=== PATIENT | male | born 1985 | race Two or more races ===

== ENCOUNTER 2016-10-02 05:25 | Emergency (ER) | payer SELFPAY ==
--- NOTE | 2016-10-02 06:58 | ER Document Report ---
HPI - HPI Patient complains to provider of: dental pain Onset: Yesterday Onset/Duration: Sudden Quality of pain: Achy Severity: Severe Pain Level: 5 Context: Patient presents to the emergency department with dental pain that started last night at approximately 2300. He denies breaking a tooth or biting down on the tooth at that time. He reports it just started hurting. Patient denies other symptoms such as fever vomiting diarrhea. Patient does not have dental insurance. Associated Symptoms: None Exacerbated by: Denies Relieved by: Denies Similar symptoms previously: No Recently seen / treated by doctor: No - DERM Skin Color: Normal Past Medical History - General Information source: Patient - Social History Smoking Status: Current Every Day Smoker Cigarette use (# per day): Yes - 1ppd Chew tobacco use (# tins/day): No Frequency of alcohol use: Rare Drug Abuse: None Family History: Reviewed & Not Pertinent Patient has suicidal ideation: No Patient has homicidal ideation: No - Medical History Medical History: Negative Renal/ Medical History: Denies: Hx Peritoneal Dialysis Surgical Hx: Negative - Immunizations Hx Diphtheria, Pertussis, Tetanus Vaccination: Yes Vertical Provider Document - CONSTITUTIONAL Agree With Documented VS: Yes Exam Limitations: No Limitations General Appearance: WD/WN, No Apparent Distress - INFECTION CONTROL TRAVEL OUTSIDE OF THE [place] IN LAST 30 DAYS: No - HEENT HEENT: Atraumatic, Normocephalic Mouth Diagram: 1 - broken tooth,No peritonsillar abscess good clear voice no trismus, no swelling no erythema opens mouth wide. no ludwigs - NECK Neck: Normal Inspection, Supple - RESPIRATORY Respiratory: Breath Sounds Normal, No Respiratory Distress O2 Sat by Pulse Oximetry: 99 - CARDIOVASCULAR Cardiovascular: Regular Rate - MUSCULOSKELETAL/EXTREMETIES Musculoskeletal/Extremeties: IZAIAH GARCIA - NEURO Level of Consciousness: Awake, Alert, Appropriate - DERM Integumentary: Warm, Dry Course - Re-evaluation Re-evalutation: 10/02/16 07:23 Written dental resource information provided for patient. - Vital Signs Vital signs: Temp Pulse Resp BP Pulse Ox 97.5 F 74 18 156/92 H 99 10/02/16 05:50 02/12/17 05:50 10/02/16 05:50 10/02/16 05:50 10/02/16 05:50 Discharge - Discharge Clinical Impression: Pain, dental, Elevated blood pressure reading Condition: Stable Disposition: HOME, SELF-CARE Instructions: Penicillin V K ([facility]), Toothache ([facility]) Additional Instructions: *You have been evaluated for dental pain *Take medications as prescribed *Follow up with dentist *Return to ED for worsening condition, changes, needs Prescriptions: Hydrocodone/Acetaminophen [[place] 5-325 Tablet] 1 each PO QID PRN #10 tablet PRN Reason: Penicillin V Potassium [Penicillin Vk 500 mg Tablet] 500 mg PO BID #20 tablet Forms: Elevated Blood Pressure
[2016-10-02] MEDS ORDERED: OXYCODONE-ACETAMINOPHEN 5-325 MG TABLET PO ONE (07:22)
[2016-10-02] MEDS ORDERED: PENICILLIN V POTASSIUM 500 MG TABLET PO ONE (07:22)
[2016-10-02 07:36] VITALS: BP 144/97
== END 2016-10-02 07:30 | disposition home or self-care (01) ==
LOC: ER 05:25
DX: K08.89 Other specified disorders of teeth and supporting structures (principal); R03.0 Elevated blood-pressure reading, without diagnosis of hypertension; F17.210 Nicotine dependence, cigarettes, uncomplicated
CPT/HCPCS: 99282

== ENCOUNTER 2016-10-27 13:41 | Emergency (ER) | payer SELFPAY ==
[2016-10-27 13:49] VITALS: BP 138/80
--- NOTE | 2016-10-27 13:53 | ER Document Report ---
ED Medical Screen (RME) - General Stated Complaint: HAND INJURY Notes: patient back handed a glass water pitcher and comes in with lacerations along the right lateral wrist. within the hour Last tetanus was 7 years ago I have greeted and performed a rapid initial assessment of this patient. A comprehensive ED assessment and evaluation of the patient, analysis of test results and completion of the medical decision making process will be conducted by additional ED providers. TRAVEL OUTSIDE OF THE [place] IN LAST 30 DAYS: No - Related Data Allergies/Adverse Reactions: No Known Allergies Allergy (Verified 01/08/16 14:04) Past Medical History Renal/ Medical History: Denies: Hx Peritoneal Dialysis - Immunizations Hx Diphtheria, Pertussis, Tetanus Vaccination: Yes Physical Exam - Vital signs Vitals: Temp Pulse Resp BP Pulse Ox 97.8 F 114 H 16 138/80 H 98 10/27/16 13:46 10/27/16 13:46 10/27/16 13:46 10/27/16 13:46 10/27/16 13:46 Course - Vital Signs Vital signs: Temp Pulse Resp BP Pulse Ox 97.8 F 114 H 16 138/80 H 98 10/27/16 13:46 10/27/16 13:46 10/27/16 13:46 10/27/16 13:46 10/27/16 13:46
[2016-10-27] MEDS ORDERED: DIPH/PERTUSS(ACELL)/TETANUS VAC/PF 0.5 ML SYR (>=10YO) IM ONE (13:54)
[2016-10-27] MEDS ORDERED: ACETAMINOPHEN 325 MG TABLET PO ONE (13:54)
--- NOTE | 2016-10-27 14:43 | ER Document Report ---
ED General - General Chief Complaint: Laceration Stated Complaint: HAND INJURY Mode of Arrival: Ambulatory Information source: Patient Notes: Patient presents to the emergency department with left wrist laceration after he punched a picture frame in anger. Patient has full range of motion no active bleeding. Tetanus was given here. TRAVEL OUTSIDE OF THE [place] IN LAST 30 DAYS: No - HPI Onset: Just prior to arrival Onset/Duration: Sudden Severity: Severe Pain Level: 5 Associated symptoms: None Exacerbated by: Denies Relieved by: Denies Similar symptoms previously: No Recently seen / treated by doctor: No - Related Data Allergies/Adverse Reactions: No Known Allergies Allergy (Verified 10/27/16 13:52) Home Medications: Current Home Medications No Home Medications 10/27/16 [History] Past Medical History - General Information source: Patient - Social History Smoking Status: Current Every Day Smoker Cigarette use (# per day): Yes - 2ppd Chew tobacco use (# tins/day): No Frequency of alcohol use: None Drug Abuse: None Occupation: unemployed Family History: Reviewed & Not Pertinent Patient has suicidal ideation: No Patient has homicidal ideation: No - Medical History Medical History: Negative Renal/ Medical History: Denies: Hx Peritoneal Dialysis Surgical Hx: Negative - Immunizations Hx Diphtheria, Pertussis, Tetanus Vaccination: - unknown Review of Systems - Review of Systems Notes: Review HPI for review of systems., All other systems negative Physical Exam - Vital signs Vitals: Temp Pulse Resp BP Pulse Ox 97.8 F 114 H 16 138/80 H 98 10/27/16 13:46 10/27/16 13:46 10/27/16 13:46 10/27/16 13:46 10/27/16 13:46 - Notes Notes: PHYSICAL EXAMINATION: GENERAL: Well-appearing and in no acute distress HEAD: Atraumatic, normocephalic. EYES: Pupils equal round extraocular movements intact, sclera anicteric, conjunctiva are normal. ENT: nares patent Moist mucous membranes. NECK: Normal range of motion, supple LUNGS: RR even/unlabored HEART: Regular rate EXTREMITIES: Normal range of motion, Superficial lacerations/abrasions noted to lateral right wrist /hand, good radial pulse, brisk cap refill, no active bleeding NEUROLOGICAL: Cranial nerves grossly intact. Normal sensory/motor exams. PSYCH: Normal mood, normal affect. SKIN: Warm, Dry, normal turgor, Course - Re-evaluation Re-evalutation: 10/27/16 Patient was instructed on care of wound importance of keeping the area clean. He verbalized instructions all instructions, site looks good no need for sutures. He has full range of motion. - Vital Signs Vital signs: Temp Pulse Resp BP Pulse Ox 97.8 F 114 H 16 138/80 H 98 10/27/16 13:46 10/27/16 13:46 10/27/16 13:46 10/27/16 13:46 10/27/16 13:46 - Diagnostic Test Radiology reviewed: Image reviewed, Reports reviewed - IMPRESSION: NEGATIVE STUDY OF THE RIGHT HAND. NO RADIOGRAPHIC EVIDENCE OF ACUTE INJURY. IMPRESSION: NEGATIVE STUDY OF THE RIGHT WRIST. NO RADIOGRAPHIC EVIDENCE OF ACUTE INJURY. Procedures - Laceration/Wound Repair Right Wrist Wound length (cm): 0.5 Wound's Depth, Shape: Superficial, Other - abrasions, small lacerations x 2 Laceration pre-procedure: Shur-Clens applied, Other - surgical scrub brush Volume Anesthetic (mLs): 0 Wound explored: Clean, No foreign body removed Irrigated w/ Saline (mLs): 1,250 Wound Repaired With: Steri-strips Notes: 10/27/16 17:05 Multiple small lacerations and abrasions noted to the lateral area of the right wrist and hand. area cleaned really well with surgical scrub brush and shur clens, area probed for glass fragments, very few found. no open lacerations Hands front picture: 1 - Multiple small lacerations abrasions noted 2 - 5 mm laceration 3 - small laceration, superficial 4 mm Discharge - Discharge Clinical Impression: Abrasion forearm, Laceration, Elevated blood pressure reading Condition: Stable Disposition: HOME, SELF-CARE Instructions: Antibiotic Ointment Protection ([facility]), Tetanus Immunization Given ([facility]), Soap Cleansing ([facility]), Care of Steri-Strip Closure ([facility]), Acetaminophen Additional Instructions: *You have been treated for abrasions, small laceration *Keep the area clean *Do not pull the steri strips off *Monitor the site for signs of infection such as increasing pain, redness, swelling, warmth *Follow up with a primary care provider for recheck within one week *Return to the ED for signs of infection *Take tylenol for pain as indicated *Return earlier for worsening condition, changes, needs, concerns *Monitor your blood pressure. Your blood pressure was elevated today. This may be because you were anxious, in pain or because you need medication. It is important to follow up with your primary care provider for full evaluation. Forms: Elevated Blood Pressure
== END 2016-10-27 15:41 | disposition home or self-care (01) ==
LOC: ER 13:41
DX: S61.511A Laceration without foreign body of right wrist, initial encounter (principal); S61.411A Laceration without foreign body of right hand, initial encounter; W25.XXXA Contact with sharp glass, initial encounter; Y93.89 Activity, other specified; R03.0 Elevated blood-pressure reading, without diagnosis of hypertension; F17.210 Nicotine dependence, cigarettes, uncomplicated; Z23 Encounter for immunization
CPT/HCPCS: 90471; 90715; 99283

== ENCOUNTER 2017-08-09 17:17 | Emergency (ER) | payer SELFPAY ==
[2017-08-09 17:36] VITALS: BP 153/97
[2017-08-09] MEDS ORDERED: LORAZEPAM 1 MG TABLET PO ONE (17:48)
[2017-08-09 18:16] LABS: ABSOLUTE BASOPHILS # (AUTO) 0.1 10^3/uL (0.0-0.2); ABSOLUTE EOSINOPHILS # (AUTO) 0.2 10^3/uL (0.0-0.6); ABSOLUTE LYMPHOCYTES (AUTO) 3.4 10^3/uL (0.5-4.7); ABSOLUTE MONOCYTES (AUTO) 0.9 10^3/uL (0.1-1.4); ABSOLUTE NEUT (AUTO) 7.4 10^3/uL (1.7-8.2); BASOPHILS % (AUTO) 0.8 % (0-2); EOSINOPHILS % (AUTO) 1.4 % (0-6); HEMATOCRIT 51.1 % (37.9-51.0); HGB HCT DIFFERENCE 2.9; LYMPHOCYTES % (AUTO) 28.3 % (13-45); MEAN CORPUSCULAR HEMOGLOBIN 31.6 pg (27.0-33.4); MEAN CORPUSCULAR HGB CONC 35.3 g/dL (32.0-36.0); MEAN CORPUSCULAR VOLUME 90 fl (80-97); MONOCYTES % (AUTO) 7.7 % (3-13); RED BLOOD COUNT 5.71 10^6/uL (4.35-5.55); RED CELL DISTRIBUTION WIDTH 13.4 % (11.5-14.0); SEGMENTED NEUTROPHILS % (AUTO) 61.8 % (42-78); WHITE BLOOD COUNT 11.9 10^3/uL (4.0-10.5)
[2017-08-09 18:28] LABS: ALANINE AMINOTRANSFERASE 35 U/L (21-72); ALBUMIN 5.3 g/dL (3.5-5.0); ALKALINE PHOSPHATASE 104 U/L (38-126); ANION GAP 16 (5-19); ASPARTATE AMINO TRANSFERASE 19 U/L (17-59); BILIRUBIN,DIRECT 0.2 mg/dL (0.0-0.4); BILIRUBIN,TOTAL 0.4 mg/dL (0.2-1.3); BLOOD UREA NITROGEN 16 mg/dL (7-20); CALCIUM 10.9 mg/dL (8.4-10.2); CARBON DIOXIDE 26 mmol/L (22-30); CHLORIDE 102 mmol/L (98-107); CREATININE RESULT 0.92 mg/dL (0.52-1.25); GLUCOSE 85 mg/dL (75-110); POTASSIUM 4.6 mmol/L (3.6-5.0); SODIUM 143.8 mmol/L (137-145); TOTAL PROTEIN 8.9 g/dL (6.3-8.2)
--- NOTE | 2017-08-09 18:32 | EKG REPORT ---
SEVERITY:- BORDERLINE ECG - SINUS TACHYCARDIA BORDERLINE T ABNORMALITIES, DIFFUSE LEADS : Confirmed by: Mitchell Handy MD 09-Aug-2017 18:31:38
--- NOTE | 2017-08-09 18:40 | RADIOLOGY REPORT (SQ) ---
EXAM DESCRIPTION: CHEST PA/LAT COMPLETED DATE/TIME: 08/09/2017 6:10 pm REASON FOR STUDY: cp COMPARISON: None. EXAM PARAMETERS: NUMBER OF VIEWS: two views TECHNIQUE: Digital Frontal and Lateral radiographic views of the chest acquired. RADIATION DOSE: NA LIMITATIONS: none FINDINGS: LUNGS AND PLEURA: No opacities, masses or pneumothorax. No pleural effusion. MEDIASTINUM AND HILAR STRUCTURES: No masses or contour abnormalities. HEART AND VASCULAR STRUCTURES: Heart normal size. No evidence for failure. BONES: No acute findings. HARDWARE: None in the chest. OTHER: No other significant finding. IMPRESSION: NO SIGNIFICANT RADIOGRAPHIC FINDING IN THE CHEST. TECHNICAL DOCUMENTATION: JOB ID: [id number] [place]-72 2010 [employer]- All Rights Reserved
--- NOTE | 2017-08-09 19:15 | ER Document Report ---
ED Cardiac - General Chief Complaint: Chest Pain Stated Complaint: CHEST PAIN Time Seen by Provider: 08/09/17 17:47 Mode of Arrival: Ambulatory Information source: Patient Notes: Patient states that he is having substernal chest pain for several days. He states he feels it is due to stress. He states he has been under a lot of stress lately. Patient states the pain is intermittent. Last several minutes at a time. It is moderate and sharp. He has had some swelling. He also states that he occasionally gets short of breath but feels like he hyperventilates from anxiety. No nausea vomiting diarrhea. No previous history of any cardiac disease. He states he does smoke approximately 3 packs per day. No histories of PEs or DVTs. No radiation of pain. TRAVEL OUTSIDE OF THE [place] IN LAST 30 DAYS: No - Related Data Allergies/Adverse Reactions: No Known Allergies Allergy (Verified 08/09/17 17:18) Past Medical History - General Information source: Patient - Social History Smoking Status: Current Every Day Smoker Chew tobacco use (# tins/day): No Frequency of alcohol use: None Drug Abuse: Marijuana Family History: Reviewed & Not Pertinent Patient has suicidal ideation: No Patient has homicidal ideation: No Renal/ Medical History: Denies: Hx Peritoneal Dialysis - Immunizations Hx Diphtheria, Pertussis, Tetanus Vaccination: - unknown Review of Systems - Review of Systems Constitutional: denies: Chills, Fever Cardiovascular: Chest pain, Dyspnea Respiratory: Short of breath. denies: Cough Gastrointestinal: denies: Diarrhea, Vomiting -: Yes All other systems reviewed and negative Physical Exam - Vital signs Vitals: Temp Pulse Resp BP Pulse Ox 98.4 F 101 H 20 153/97 H 97 08/09/17 17:35 08/09/17 17:35 08/09/17 17:35 08/09/17 17:35 08/09/17 17:35 Interpretation: Hypertensive - General General appearance: Appears well, Alert In distress: None - HEENT Head: Normocephalic, Atraumatic Eyes: Normal Pupils: PERRL - Respiratory Respiratory status: No respiratory distress Chest status: Nontender Breath sounds: Normal Chest palpation: Normal - Cardiovascular Rhythm: Regular Heart sounds: Normal auscultation Murmur: No - Abdominal Inspection: Normal Distension: No distension Bowel sounds: Normal Tenderness: Nontender Organomegaly: No organomegaly - Back Back: Normal, Nontender - Extremities General upper extremity: Normal inspection, Nontender, Normal color, Normal ROM , Normal temperature General lower extremity: Normal inspection, Nontender, Normal color, Normal ROM , Normal temperature, Normal weight bearing. No: Cynthia's sign - Neurological Neuro grossly intact: Yes Cognition: Normal Orientation: AAOx4 [place] Coma Scale Eye Opening: Spontaneous [place] Coma Scale Verbal: Oriented Marsha Coma Scale Motor: Obeys Commands Roc[place] Coma Scale Total: 15 Speech: Normal Motor strength normal: LUE, RUE, LLE, RLE Sensory: Normal - Psychological Associated symptoms: Normal affect, Anxious - Skin Skin Temperature: Warm Skin Moisture: Dry Skin Color: Normal Course - Vital Signs Vital signs: Temp Pulse Resp BP Pulse Ox 98.4 F 101 H 20 153/97 H 97 08/09/17 17:35 08/09/17 17:35 08/09/17 17:35 08/09/17 17:35 08/09/17 17:35 - Laboratory Result Diagrams: 08/09/17 17:55 08/09/17 17:55 Laboratory results interpreted by me: 08/09/17 08/09/17 17:55 17:55 WBC 11.9 H RBC 5.71 H Hgb 18.0 H Hct 51.1 H Calcium 10.9 H Total Protein 8.9 H Albumin 5.3 H - Diagnostic Test Radiology reviewed: Image reviewed, Reports reviewed - No infiltrate or edema on x-ray - EKG Interpretation by Me EKG shows normal: Sinus rhythm Rate: Tachycardia Rhythm: NSR [place]/QRS: No: Right axis deviation, Left axis deviation When compared to previous EKG there are: No significant change Discharge - Discharge Clinical Impression: Acute anxiety, Tobacco abuse Condition: Stable Disposition: HOME, SELF-CARE Instructions: Anxiety ([facility]), Stop Smoking ([facility]) Prescriptions: Lorazepam [Ativan 1 mg Tablet] 1 mg PO BID #18 tab Forms: Smoking Cessation Education, Elevated Blood Pressure, Return to Work Referrals: ALMITA CARMONA MD [[facility]ED STAFF] - Follow up in 1 week
== END 2017-08-09 19:33 | disposition home or self-care (01) ==
LOC: ER 17:17
DX: F41.9 Anxiety disorder, unspecified (principal); R07.89 Other chest pain; R06.02 Shortness of breath; R60.9 Edema, unspecified; R00.0 Tachycardia, unspecified; F12.10 Cannabis abuse, uncomplicated; F17.200 Nicotine dependence, unspecified, uncomplicated
CPT/HCPCS: 36415; 71020; 80053; 84484; 85025; 93005; 93010; 99285

== ENCOUNTER 2018-01-12 16:08 | Emergency (ER) | payer SELFPAY ==
--- NOTE | 2018-01-12 17:25 | ER Document Report ---
ED General - General Chief Complaint: Psych Problem Stated Complaint: PSYCH EVAL Time Seen by Provider: 01/12/18 17:20 Mode of Arrival: Ambulatory Information source: Patient Notes: 32-year-old male presents with complaints of depression and anxiety thoughts of suicidal ideations and giving up over the past year and a half. Patient notes intermittently he becomes angry but more so now he is feeling depressed and crying TRAVEL OUTSIDE OF THE [place] IN LAST 30 DAYS: No - HPI Onset: Other Onset/Duration: Persistent Quality of pain: No pain Severity: Mild Pain Level: Denies Associated symptoms: Other Exacerbated by: Denies Relieved by: Denies Similar symptoms previously: No Recently seen / treated by doctor: No - Related Data Allergies/Adverse Reactions: No Known Allergies Allergy (Verified 01/12/18 16:12) Past Medical History - Social History Smoking Status: Current Every Day Smoker Cigarette use (# per day): Yes Chew tobacco use (# tins/day): No Smoking Education Provided: No Family History: Reviewed & Not Pertinent Renal/ Medical History: Denies: Hx Peritoneal Dialysis - Immunizations Hx Diphtheria, Pertussis, Tetanus Vaccination: - unknown Review of Systems - Review of Systems Notes: REVIEW OF SYSTEMS: CONSTITUTIONAL : Denies fever, chills, or sweats. Denies recent illness. EENT: Denies eye, ear, throat, or mouth pain or symptoms. Denies nasal or sinus congestion or discharge. Denies throat, tongue, or mouth swelling or difficulty swallowing. CARDIOVASCULAR: Denies chest pain. Denies palpitations or racing or irregular heart beat. Denies ankle edema. RESPIRATORY: Denies cough, cold, or chest congestion. Denies shortness of breath, difficulty breathing, or wheezing. GASTROINTESTINAL: Denies abdominal pain or distention. Denies nausea, vomiting , or diarrhea. Denies blood in vomitus, stools, or per rectum. Denies black, tarry stools. Denies constipation. GENITOURINARY: Denies difficulty urinating, painful urination, burning, frequency, blood in urine, or discharge. MUSCULOSKELETAL: Denies back or neck pain or stiffness. Denies joint pain or swelling. SKIN: Denies rash, lesions or sores. HEMATOLOGIC : Denies easy bruising or bleeding. LYMPHATIC: Denies swollen, enlarged glands. NEUROLOGICAL: Denies confusion or altered mental status. Denies passing out or loss of consciousness. Denies dizziness or lightheadedness. Denies headache. Denies weakness or paralysis or loss of use of either side. Denies problems with gait or speech. Denies sensory loss, numbness, or tingling. Denies seizures. PSYCHIATRIC: Admits depression ALL OTHER SYSTEMS REVIEWED AND NEGATIVE. Dictation was performed using [employer] voice recognition software PHYSICAL EXAMINATION: GENERAL: Well-appearing, well-nourished and in no acute distress. HEAD: Atraumatic, normocephalic. EYES: Pupils equal round and reactive to light, extraocular movements intact, sclera anicteric, conjunctiva are normal. ENT: Nares patent, oropharynx clear without exudates. Moist mucous membranes. NECK: Normal range of motion, supple without lymphadenopathy LUNGS: Breath sounds clear to auscultation bilaterally and equal. No wheezes rales or rhonchi. HEART: Regular rate and rhythm without murmurs ABDOMEN: Soft, nontender, nondistended abdomen. No guarding, no rebound. No masses appreciated. Musculoskeletal: Normal range of motion, no pitting or edema. No cyanosis. NEUROLOGICAL: Cranial nerves grossly intact. Normal speech, normal gait. Normal sensory, motor exams PSYCH: Normal mood, normal affect. SKIN: Warm, Dry, normal turgor, no rashes or lesions noted. Physical Exam - Vital signs Vitals: Temp Pulse Resp BP Pulse Ox 97.6 F 98 20 133/74 H 98 01/12/18 16:21 01/12/18 16:21 01/12/18 16:21 01/12/18 16:21 01/12/18 16:21 Course - Re-evaluation Re-evalutation: 01/12/18 17:26 I do believe the patient is medically stable however I would like mental health to get involved to evaluate for his depression does not have any actual thoughts of self-harm - Vital Signs Vital signs: Temp Pulse Resp BP Pulse Ox 97.6 F 98 20 133/74 H 98 01/12/18 16:21 01/12/18 16:21 01/12/18 16:21 01/12/18 16:21 01/12/18 16:21 Discharge - Discharge Clinical Impression: Depression Qualifiers: Depression Type: unspecified Qualified Code(s): F32.9 - Major depressive disorder, single episode, unspecified Condition: Stable Disposition: PSYCH HOSP/UNIT
[2018-01-12 18:04] LABS: ABSOLUTE BASOPHILS # (AUTO) 0.1 10^3/uL (0.0-0.2); ABSOLUTE EOSINOPHILS # (AUTO) 0.2 10^3/uL (0.0-0.6); ABSOLUTE LYMPHOCYTES (AUTO) 3.5 10^3/uL (0.5-4.7); ABSOLUTE MONOCYTES (AUTO) 0.6 10^3/uL (0.1-1.4); ABSOLUTE NEUT (AUTO) 6.1 10^3/uL (1.7-8.2); BASOPHILS % (AUTO) 0.7 % (0-2); EOSINOPHILS % (AUTO) 1.8 % (0-6); HEMATOCRIT 43.9 % (37.9-51.0); HEMOGLOBIN 15.2 g/dL (13.5-17.0); LYMPHOCYTES % (AUTO) 33.1 % (13-45); MEAN CORPUSCULAR HEMOGLOBIN 31.3 pg (27.0-33.4); MEAN CORPUSCULAR HGB CONC 34.6 g/dL (32.0-36.0); MEAN CORPUSCULAR VOLUME 90 fl (80-97); MONOCYTES % (AUTO) 5.6 % (3-13); PLATELET COUNT 286 10^3/uL (150-450); RED BLOOD COUNT 4.86 10^6/uL (4.35-5.55); RED CELL DISTRIBUTION WIDTH 13.3 % (11.5-14.0); SEGMENTED NEUTROPHILS % (AUTO) 58.8 % (42-78); TOTAL CELLS COUNTED % (AUTO) 100 %; WHITE BLOOD COUNT 10.4 10^3/uL (4.0-10.5)
[2018-01-12 18:23] LABS: ACETAMINOPHEN < 10 ug/mL (10-30); ALANINE AMINOTRANSFERASE 29 U/L (21-72); ALBUMIN 4.6 g/dL (3.5-5.0); ALCOHOL < 10 mg/dL (NONE DETECTED); ALKALINE PHOSPHATASE 76 U/L (38-126); ANION GAP 12 (5-19); ASPARTATE AMINO TRANSFERASE 16 U/L (17-59); BILIRUBIN,DIRECT 0.3 mg/dL (0.0-0.4); BILIRUBIN,TOTAL 0.3 mg/dL (0.2-1.3); BLOOD UREA NITROGEN 17 mg/dL (7-20); CARBON DIOXIDE 27 mmol/L (22-30); CHLORIDE 107 mmol/L (98-107); GLUCOSE 87 mg/dL (75-110); POTASSIUM 4.6 mmol/L (3.6-5.0); SALICYLATE < 1.0 mg/dL (2.0-20.0); SODIUM 145.9 mmol/L (137-145); TOTAL PROTEIN 7.8 g/dL (6.3-8.2)
--- NOTE | 2018-01-12 18:23 | EKG REPORT ---
SEVERITY:- NORMAL ECG - SINUS RHYTHM : Confirmed by: Mitchell Handy MD 12-Jan-2018 18:22:50
[2018-01-12 19:12] LABS: APPEARANCE,URINE SLIGHTLY-CLOUDY; BILIRUBIN,URINE NEGATIVE (NEGATIVE); COLOR,URINE YELLOW; GLUCOSE, URINE NEGATIVE (NEGATIVE); KETONES,URINE NEGATIVE (NEGATIVE); LEUKOCYTE ESTERASE,URINE TRACE (NEGATIVE); NITRITE,URINE NEGATIVE (NEGATIVE); PROTEIN,URINE NEGATIVE (NEGATIVE); URINE SPECIFIC GRAVITY 1.021
[2018-01-12 19:24] LABS: URINE AMPHETAMINES SCREEN NEGATIVE; URINE BARBITURATES SCREEN NEGATIVE; URINE BENZODIAZEPINES SCREEN NEGATIVE; URINE COCAINE SCREEN NEGATIVE; URINE MARIJUANA (THC) SCREEN UNCONFIRMED POSITIVE; URINE METHADONE SCREEN NEGATIVE; URINE PHENCYCLIDINE SCREEN NEGATIVE
[2018-01-12 20:02] VITALS: BP 123/79
== END 2018-01-12 20:02 ==
LOC: ER 16:08
DX: F32.9 Major depressive disorder, single episode, unspecified (principal); R45.851 Suicidal ideations; F17.210 Nicotine dependence, cigarettes, uncomplicated
CPT/HCPCS: 36415; 80053; 80307; 81001; 85025; 93005; 93010; 99284

== ENCOUNTER 2018-01-13 09:29 | Emergency (ER) | payer SELFPAY ==
[2018-01-13 09:45] VITALS: BP 134/79
--- NOTE | 2018-01-13 10:33 | ER Document Report ---
ED General - General Chief Complaint: Psych Problem Stated Complaint: PYSCH EVAULATION Time Seen by Provider: 01/13/18 10:00 Notes: 32-year-old male here with complaints of feeling depressed lately. He denies any SI HI hallucinations. Occasionally he will smoke some marijuana but denies any other illicit drugs. He states that he was on a medication in the past that did help with these type of symptoms but does not remember the name of the medication. TRAVEL OUTSIDE OF THE [place] IN LAST 30 DAYS: No - Related Data Allergies/Adverse Reactions: No Known Allergies Allergy (Verified 01/13/18 10:01) Past Medical History - Social History Smoking Status: Current Every Day Smoker Chew tobacco use (# tins/day): No Frequency of alcohol use: None Drug Abuse: Marijuana Family History: Reviewed & Not Pertinent Patient has suicidal ideation: No Patient has homicidal ideation: No Renal/ Medical History: Denies: Hx Peritoneal Dialysis Psychiatric Medical History: Reports: Hx Depression - anxiety - Immunizations Hx Diphtheria, Pertussis, Tetanus Vaccination: - unknown Review of Systems - Review of Systems Notes: See history of present illness for pertinent positive review of systems; otherwise all review of systems have been reviewed and are negative Physical Exam - Vital signs Vitals: Temp Pulse Resp BP Pulse Ox 98.0 F 88 18 134/79 H 99 01/13/18 09:43 01/13/18 09:43 01/13/18 09:43 01/13/18 09:43 01/13/18 09:43 - Notes Notes: PHYSICAL EXAMINATION: GENERAL: Well-appearing and in no acute distress. HEAD: Atraumatic, normocephalic. EYES: Pupils equal round and reactive to light, extraocular movements intact, sclera anicteric, conjunctiva are normal. ENT: nares patent, oropharynx clear without exudates. Moist mucous membranes. NECK: Normal range of motion, supple without lymphadenopathy LUNGS: CTAB and equal. No wheezes rales or rhonchi. HEART: Regular rate and rhythm without murmurs ABDOMEN: Soft, no tenderness. No facial grimacing/wincing upon palpation. No guarding, no rebound. EXTREMITIES: Normal range of motion, no pitting edema. No cyanosis. NEUROLOGICAL: Cranial nerves grossly intact. Normal sensory/motor exams. PSYCH: Normal mood, normal affect. Laughs at times SKIN: Warm, Dry, normal turgor, no rashes or lesions noted Course - Re-evaluation Re-evalutation: 01/13/18 10:32 MEDICAL DECISION MAKING: Patient seen by Ricardo mental health professional She recommends BuSpar 5 mg in the morning and 10 mg at night so I have prescribed this for 7 days Discharge instructions given to patient and patient understands and agrees to the plan of care - Vital Signs Vital signs: Temp Pulse Resp BP Pulse Ox 98.0 F 88 18 134/79 H 99 01/13/18 09:43 01/13/18 09:43 01/13/18 09:43 01/13/18 09:43 01/13/18 09:43 Discharge - Discharge Clinical Impression: Psychiatric problem Condition: Good Disposition: HOME, SELF-CARE Additional Instructions: You were seen by the mental health professional. Please follow-up with your outpatient provider. Prescriptions: Buspirone HCl [Buspar 10 mg Tablet] 10 mg PO ASDIR PRN #7 tablet PRN Reason: Buspirone HCl [Buspar 5 mg Tablet] 1 tab PO QAM #7 tab
--- NOTE | 2018-01-14 10:10 | PSYCHOLOGICAL NOTE ---
Psych Note - Psych Note Psych Note: reason for consult: anxiety and depression 32-year-old male here with complaints of feeling depressed lately. He denies any SI HI hallucinations. Occasionally he will smoke some marijuana but denies any other illicit drugs. He states that he was on a medication in the past that did help with these type of symptoms but does not remember the name of the medication. Patient reports he might be in a mid-life crisis. He disclosed that he has been home for a little bit since he is unable to work because of the rain (he is a route sales representative). He continued to disclose that he has been thinking about all the time he has missed with family and "just sitting around doing nothing." He reports that he was briefly on medications he received from [facility] about a year ago "that seemed to help." Patient denies suicidal and homicidal ideation and confirms that he smokes marijuana "once in a while." Patient is alert and orientated to person, place, time and circumstance. Mood is euthymic with congruent affect; patient is noted to be slightly nervous and is over compensating with jokes and laughing. Patient denies suicidal and homicidal ideation. Delusions are absent and behavioral is congruent with an intact reality based presentation ie organized and linear thought processes. eye contact was well maintained. conversational speech is within normal rate, tone and prosody. attention and concentration are good. insight, judgment and impulse control is good. Medication recommendations per [facility]'s contracted psychiatrist, Dr. Richa MD are as follows 1. Buspar 5mg every morning and 10mg every evening 311 (F32.9) unspecified depressive disorder (situational) 300.00 (F41.9) Unspecified anxiety disorder Impression/plan: Patient is cleared from acute psychiatric services. Patient does not meet IVC criteria per [place] GS 122C. Patient discloses thoughts of possible mid-life crisis. Medication recommendations have been provided. Dr. Gómez was consulted on the care and management of this patient; attending physician is in agreement with recommendations and disposition.
== END 2018-01-13 10:35 | disposition home or self-care (01) ==
LOC: ER 09:29
DX: F32.9 Major depressive disorder, single episode, unspecified (principal); F41.9 Anxiety disorder, unspecified; F17.200 Nicotine dependence, unspecified, uncomplicated; F12.10 Cannabis abuse, uncomplicated
CPT/HCPCS: 99284